=== PATIENT | female | born 1960 | race African-American/Black ===

== ENCOUNTER 2020-10-10 04:19 | Day surgery (SDC) | payer OTHER ==
[2020-10-09 10:09] VITALS: BMI 36.0
[2020-10-10] MEDS ORDERED: INSULIN (NOVOLOG) ASPART 100 UNITS/ML 10ML VIAL SQ ONE (08:41)
[2020-10-10 09:54] VITALS: TEMP 97.7
[2020-10-10 11:23] VITALS: BP 170/64; PULSE 64
== END 2020-10-10 12:28 | disposition home or self-care (01) ==
LOC: JASU-ENDO 04:19
PROVIDERS: ATTEND Internal Medicine Gastroenterology
PROC: 0DBL8ZX Excision of Transverse Colon, Via Natural or Artificial Opening Endoscopic, Diagnostic (ICD-10-PCS; 2020-10-10)
PROC: 0DBK8ZX Excision of Ascending Colon, Via Natural or Artificial Opening Endoscopic, Diagnostic (ICD-10-PCS; principal; 2020-10-10 09:15)
DX: Z12.11 Encounter for screening for malignant neoplasm of colon (principal); D12.2 Benign neoplasm of ascending colon; D12.3 Benign neoplasm of transverse colon; K64.8 Other hemorrhoids; E11.9 Type 2 diabetes mellitus without complications
CPT/HCPCS: 82962

== ENCOUNTER 2024-09-01 18:25 | Inpatient (IN) | payer OTHER ==
[2024-09-01 18:51] VITALS: BMI 38.4
[2024-09-01 20:31] LABS: VENOUS BASE EXCESS 1.4 mmol/L (-2-2); VENOUS O2 SATURATION 95.1 % (70-80); VENOUS PCO2 39.3 mmHg (38-52); VENOUS PH 7.433 (7.310-7.410)
[2024-09-01 20:43] LABS: CHLORIDE 87 mmol/L (98-107); POTASSIUM 3.8 mmol/L (3.5-5.1); SODIUM 127 mmol/L (136-145)
[2024-09-01 20:44] LABS: CALCIUM 9.9 mg/dL (8.5-10.1)
[2024-09-01 20:46] LABS: ALBUMIN 3.5 g/dl (3.4-5.0); ANION GAP 15 mmol/L (4-13); BLOOD UREA NITROGEN 47.5 mg/dL (7-18); CO2 25 mmol/L (21-32); MAGNESIUM 2.1 mg/dL (1.8-2.4)
[2024-09-01 20:49] LABS: CREATININE 2.3 mg/dL (0.55-1.3); SGOT/AST 18 U/L (15-37); SGPT/ALT 17 U/L (13-61)
[2024-09-01 20:50] LABS: BILIRUBIN,TOTAL 0.6 mg/dL (0.2-1)
[2024-09-01 20:52] LABS: ALK PHOS 108 U/L (45-117); GLUCOSE,RANDOM 621 mg/dL (74-106)
[2024-09-01] MEDS ORDERED: TRIMETHOBENZAMIDE HCL 200MG/2ML INJ IM ONE (20:59)
[2024-09-01] MEDS ORDERED: PANTOPRAZOLE SODIUM 40 MG/100 ML BAG IVPB ONE (20:59)
[2024-09-01] MEDS: PANTOPRAZOLE SODIUM 40 MG VIAL IVPUSH ONE (21:04)
[2024-09-01] MEDS: SODIUM CHLORIDE 0.9% 500 ML INFUS.BAG IV ONE ×2 (21:04→23:37)
[2024-09-01] MEDS: TRIMETHOBENZAMIDE HCL 200MG/2ML INJ IM ONE (21:11)
[2024-09-01 21:39] LABS: VENOUS BASE EXCESS 2.1 mmol/L (-2-2); VENOUS O2 SATURATION 71.5 % (70-80); VENOUS PCO2 38.3 mmHg (38-52); VENOUS PH 7.45 (7.310-7.410)
[2024-09-01 21:54] LABS: BASO % 1.1 % (0-2.0); HEMATOCRIT 37.7 % (32.4-45.2); HEMOGLOBIN 12.2 GM/dL (10.7-15.3); LYMPH % 16.7 % (8-40); MCH 25.1 pg (25.7-33.7); MCHC 32.4 g/dl (32.0-36.0); MEAN CELL VOLUME 77.6 fl (80-96); MEAN PLT VOLUME 9.4 fl (7.5-11.1); MONO % 7.7 % (3.8-10.2); NEUT % 74.5 % (42.8-82.8); PLATELET COUNT 336 10^3/uL (134-434); RBC 4.86 M/mm3 (3.60-5.2); RDW 15.9 % (11.6-15.6)
[2024-09-01] MEDS ORDERED: POTASSIUM CHLORIDE ORAL LIQUID 20 MEQ/15 ML ONE (23:25)
[2024-09-01] MEDS: POTASSIUM CHLORIDE ORAL LIQUID 20 MEQ/15 ML PO ONE (23:37)
[2024-09-01] MEDS: INSULIN (NOVOLOG) ASPART 100 UNITS/ML 10ML VIAL SQ ONE (23:47)
[2024-09-01 23:51] LABS: PH,URINE 5.5 (5.0-8.0); URINE APPEARANCE CLEAR; URINE BILIRUBIN NEGATIVE (NEGATIVE); URINE COLOR YELLOW; URINE GLUCOSE (UA) 3+ (NEGATIVE); URINE KETONE TRACE (NEGATIVE); URINE LEUK ESTERASE NEGATIVE (NEGATIVE); URINE NITRITE NEGATIVE (NEGATIVE); URINE PROTEIN 2+ (NEGATIVE); URINE UROBILINOGEN 0.2 mg/dL (0.2-1.0)
[2024-09-01 23:55] LABS: EPI CELLS 33.3 /uL (0-25.1); HYALINE CASTS 1.64 /uL (0-3.1); URINE BACTERIA 5325.9 /uL (0-1359); URINE RBC 5.2 /uL (0-23.9); URINE WBC 52.3 /uL (0-25.8)
[2024-09-02 01:15] LABS: CHLORIDE 92 mmol/L (98-107); SODIUM 131 mmol/L (136-145)
[2024-09-02 01:16] LABS: CALCIUM 9.2 mg/dL (8.5-10.1)
[2024-09-02 01:17] LABS: ANION GAP 12 mmol/L (4-13); CO2 27 mmol/L (21-32)
[2024-09-02 01:29] LABS: GLUCOSE,RANDOM 561 mg/dL (74-106); LACTIC ACID 2.7 mmol/L (0.4-2.0)
[2024-09-02] MEDS ORDERED: INSULIN REGULAR 100 UNITS in SODIUM CHLORIDE 99 ML IVPB SCH (01:45)
[2024-09-02] MEDS ORDERED: CEFTRIAXONE 1 G/50 ML PREMIX 50 ML IVPB ONE (01:51)
[2024-09-02] MEDS: CEFTRIAXONE 1,000 MG in DEXTROSE 5%-WATER - 50 ML IVPB ONE (01:57)
[2024-09-02] MEDS: LACTATED RINGERS SOLUTION 1000 ML INFUS.BAG IV ONE (01:57)
[2024-09-02] MEDS: INSULIN (NOVOLOG) ASPART 100 UNITS/ML 10ML VIAL SQ ONE (02:33)
[2024-09-02] MEDS: INSULIN REGULAR 100 UNITS in SODIUM CHLORIDE 99 ML IVPB SCH (03:30)
[2024-09-02] MEDS ORDERED: MELATONIN 5 MG TABLETS ONE (03:47)
[2024-09-02] MEDS: MELATONIN 5 MG TABLETS PO ONE ×2 (04:17→05:25)
[2024-09-02] MEDS: SODIUM CHLORIDE 1,000 ML IV STA ×2 (04:58)
[2024-09-02] MEDS: INSULIN REGULAR HUMAN 100 UNITS/ML *VIAL IVPUSH ONE ×2 (04:58→06:13)
[2024-09-02] MEDS: HEPARIN NA (PORCINE) 5,000 UNITS/ML 1ML VIAL SQ SCH (05:25)
[2024-09-02] MEDS ORDERED: TRIMETHOBENZAMIDE HCL 200MG/2ML INJ IM PRN ×2 (06:00→09:31)
[2024-09-02] MEDS ORDERED: GABAPENTIN 100 MG CAPSULE ONE (06:30)
[2024-09-02] MEDS: GABAPENTIN 100 MG CAPSULE PO SCH (06:33)
[2024-09-02 07:40] LABS: POTASSIUM 3.4 mmol/L (3.5-5.1)
[2024-09-02 07:41] LABS: CALCIUM 9.1 mg/dL (8.5-10.1)
[2024-09-02 07:43] LABS: ALBUMIN 3.4 g/dl (3.4-5.0)
[2024-09-02 07:46] LABS: CREATININE 1.6 mg/dL (0.55-1.3)
[2024-09-02 07:47] LABS: BILIRUBIN,TOTAL 0.3 mg/dL (0.2-1); TOT PROT 7.3 g/dl (6.4-8.2)
[2024-09-02 07:49] LABS: BLOOD UREA NITROGEN 34.6 mg/dL (7-18)
[2024-09-02 07:51] LABS: MAGNESIUM 1.9 mg/dL (1.8-2.4)
[2024-09-02] MEDS: INSULIN ASPART SLIDING SCALE (NOVOLOG) 1 VIAL SQ SCH ×2 (07:58→11:24)
[2024-09-02] MEDS ORDERED: ONDANSETRON 4 MG/2 ML VIAL ONE (08:00)
[2024-09-02] MEDS: ONDANSETRON 4 MG/2 ML VIAL IVPUSH PRN (08:01)
[2024-09-02 08:18] LABS: BASO % 0.4 % (0-2.0); HEMATOCRIT 36.3 % (32.4-45.2); HEMOGLOBIN 11.5 GM/dL (10.7-15.3); LYMPH % 19.1 % (8-40); MCH 24.8 pg (25.7-33.7); MCHC 31.7 g/dl (32.0-36.0); MEAN CELL VOLUME 78.2 fl (80-96); MEAN PLT VOLUME 9.8 fl (7.5-11.1); MONO % 4.8 % (3.8-10.2); NEUT % 75.7 % (42.8-82.8); PLATELET COUNT 308 10^3/uL (134-434); RBC 4.64 M/mm3 (3.60-5.2); RDW 15.9 % (11.6-15.6); WHITE BLOOD COUNT 13.4 K/mm3 (4.0-10.0)
[2024-09-02] MEDS: INSULIN (LEVEMIR) 100 UNITS/ML UNITS SQ SCH (08:49)
[2024-09-02] MEDS ORDERED: amLODIPine BESYLATE 10 MG TABLET (FP) ONE (09:06)
[2024-09-02] MEDS ORDERED: POTASSIUM CHLORIDE TABS 20 MEQ TABLET.ER (FP) PO ONE (09:06)
[2024-09-02] MEDS ORDERED: TRIMETHOBENZAMIDE HCL 200MG/2ML INJ IM ONE (09:16)
[2024-09-02] MEDS: SODIUM CHLORIDE 0.45% 1,000 ML IV SCH (09:31)
[2024-09-02] MEDS: TRIMETHOBENZAMIDE HCL 200MG/2ML INJ IM ONE (09:33)
[2024-09-02] MEDS: POTASSIUM CHLORIDE TABS 20 MEQ TABLET.ER (FP) PO ONE (09:34)
[2024-09-02] MEDS ORDERED: PANTOPRAZOLE SODIUM 40 MG VIAL ONE (09:35)
[2024-09-02] MEDS: PANTOPRAZOLE SODIUM 40 MG VIAL IVPUSH ONE (09:38)
[2024-09-02] MEDS ORDERED: INSULIN (LEVEMIR) 100 UNITS/ML UNITS SQ SCH (10:00)
[2024-09-02] MEDS: amLODIPine BESYLATE 10 MG TABLET (FP) PO SCH (10:42)
[2024-09-02] MEDS ORDERED: INSULIN ASPART SLIDING SCALE (NOVOLOG) 1 VIAL SQ ONE ×2 (11:34→17:00)
[2024-09-02] MEDS: MAG HYDROX/AL HYDROX/SIMETH 30 ML UNIT-DOSE CUP PO ONE (16:53)
[2024-09-02] MEDS: METOCLOPRAMIDE HCL INJECTION 10 MG/2 ML VIAL IVPUSH SCH (16:53)
[2024-09-02] MEDS: TAMSULOSIN HCL 0.4 MG CAP PO ONE (16:57)
[2024-09-02] MEDS ORDERED: PANTOPRAZOLE 40 MG TABLET PO SCH (22:00)
[2024-09-02] MEDS: PANTOPRAZOLE SODIUM 40 MG VIAL IVPUSH SCH (23:06)
[2024-09-03] MEDS ORDERED: TRIMETHOBENZAMIDE HCL 200MG/2ML INJ IM PRN (07:24)
[2024-09-03 09:28] LABS: BASO % 0.6 % (0-2.0); EOS % 0.3 % (0-4.5); HEMATOCRIT 30.4 % (32.4-45.2); HEMOGLOBIN 10.3 GM/dL (10.7-15.3); LYMPH % 41.6 % (8-40); MCH 25.8 pg (25.7-33.7); MCHC 33.9 g/dl (32.0-36.0); MEAN CELL VOLUME 76.2 fl (80-96); MEAN PLT VOLUME 9.3 fl (7.5-11.1); MONO % 8.1 % (3.8-10.2); NEUT % 49.4 % (42.8-82.8); PLATELET COUNT 249 10^3/uL (134-434); RBC 3.98 M/mm3 (3.60-5.2)
[2024-09-03 09:55] LABS: POTASSIUM 3.1 mmol/L (3.5-5.1)
[2024-09-03] MEDS ORDERED: CEFTRIAXONE 1 G/50 ML PREMIX 50 ML IVPB SCH (10:00)
[2024-09-03 10:03] LABS: ALBUMIN 2.9 g/dl (3.4-5.0); BLOOD UREA NITROGEN 22.3 mg/dL (7-18); CALCIUM 8.5 mg/dL (8.5-10.1); MAGNESIUM 1.7 mg/dL (1.8-2.4)
[2024-09-03 10:06] LABS: CREATININE 1.6 mg/dL (0.55-1.3)
[2024-09-03 10:08] LABS: BILIRUBIN,TOTAL 0.3 mg/dL (0.2-1)
[2024-09-03] MEDS: TAMSULOSIN HCL 0.4 MG CAP PO SCH (11:17)
[2024-09-03] MEDS: CEFTRIAXONE 1 GM in DEXTROSE 5%-WATER - 50 ML IVPB SCH (12:36)
[2024-09-03] MEDS: CEFTRIAXONE 1 G/50 ML PREMIX 50 ML IVPB SCH (12:37)
[2024-09-03] MEDS: MAG HYDROX/AL HYDROX/SIMETH 30 ML UNIT-DOSE CUP PO PRN (14:29)
[2024-09-03] MEDS: POTASSIUM CHLORIDE ORAL LIQUID 20 MEQ/15 ML PO SCH (16:14)
[2024-09-03] MEDS: SUCRALFATE 1 GM/10 ML UNIT DOSE CUPS PO SCH (16:15)
[2024-09-03] MEDS: MAGNESIUM OXIDE 400 MG TABLET (FP) PO ONE (16:18)
[2024-09-03] MEDS: INSULIN ASPART SLIDING SCALE (NOVOLOG) 1 VIAL SQ SCH (16:23)
[2024-09-03] MEDS: ACETAMINOPHEN 1000 MG/100 ML BAG IVPB ONE (20:46)
[2024-09-03] MEDS: INSULIN (LEVEMIR) 100 UNITS/ML UNITS SQ SCH (21:58)
[2024-09-03] MEDS ORDERED: INSULIN (LEVEMIR) 100 UNITS/ML UNITS SQ SCH (22:00)
[2024-09-04 09:46] LABS: BASO % 0.7 % (0-2.0); EOS % 0.7 % (0-4.5); HEMATOCRIT 32.9 % (32.4-45.2); HEMOGLOBIN 10.4 GM/dL (10.7-15.3); LYMPH % 35.9 % (8-40); MCH 25.1 pg (25.7-33.7); MCHC 31.7 g/dl (32.0-36.0); MEAN CELL VOLUME 79.3 fl (80-96); MEAN PLT VOLUME 9.6 fl (7.5-11.1); MONO % 8.5 % (3.8-10.2); NEUT % 54.2 % (42.8-82.8); PLATELET COUNT 240 10^3/uL (134-434); RBC 4.15 M/mm3 (3.60-5.2); RDW 16.2 % (11.6-15.6)
[2024-09-04 10:18] LABS: CALCIUM 8.4 mg/dL (8.5-10.1)
[2024-09-04 10:19] LABS: ALBUMIN 2.8 g/dl (3.4-5.0)
[2024-09-04 10:22] LABS: BILIRUBIN,TOTAL 0.3 mg/dL (0.2-1); CREATININE 1.6 mg/dL (0.55-1.3)
[2024-09-04 10:23] LABS: TOT PROT 6.3 g/dl (6.4-8.2)
[2024-09-04] MEDS ORDERED: INSULIN ASPART SLIDING SCALE (NOVOLOG) 1 VIAL SQ ONE ×2 (11:45→16:58)
[2024-09-04] MEDS: SIMETHICONE 80 MG TAB.CHEW (FP) PO SCH (14:23)
[2024-09-04] MEDS: METOCLOPRAMIDE HCL 10 MG TABLET (FP) PO SCH (17:00)
[2024-09-04] MEDS: MELATONIN 5 MG TABLETS PO PRN (23:58)
[2024-09-05] MEDS: ACETAMINOPHEN 1000 MG/100 ML BAG IVPB PRN (03:58)
[2024-09-05] MEDS: IBUPROFEN 400 MG TABLET (FP) PO ONE (06:38)
[2024-09-05 08:28] LABS: BASO % 0.6 % (0-2.0); EOS % 1.5 % (0-4.5); HEMATOCRIT 27.6 % (32.4-45.2); HEMOGLOBIN 9.3 GM/dL (10.7-15.3); LYMPH % 31.7 % (8-40); MCH 25.9 pg (25.7-33.7); MCHC 33.9 g/dl (32.0-36.0); MEAN CELL VOLUME 76.6 fl (80-96); MEAN PLT VOLUME 9.3 fl (7.5-11.1); MONO % 7.4 % (3.8-10.2); NEUT % 58.8 % (42.8-82.8); PLATELET COUNT 191 10^3/uL (134-434); RDW 15.5 % (11.6-15.6); WHITE BLOOD COUNT 8.3 K/mm3 (4.0-10.0)
[2024-09-05 08:34] LABS: POTASSIUM 3.8 mmol/L (3.5-5.1)
[2024-09-05 08:48] LABS: CALCIUM 8.5 mg/dL (8.5-10.1)
[2024-09-05 08:49] LABS: ALBUMIN 2.7 g/dl (3.4-5.0)
[2024-09-05 08:50] LABS: BLOOD UREA NITROGEN 23.6 mg/dL (7-18)
[2024-09-05 08:52] LABS: CREATININE 1.5 mg/dL (0.55-1.3)
[2024-09-05 08:54] LABS: BILIRUBIN,TOTAL 0.3 mg/dL (0.2-1); TOT PROT 5.9 g/dl (6.4-8.2)
[2024-09-05] MEDS: PANTOPRAZOLE 40 MG TABLET PO SCH (09:24)
[2024-09-05] MEDS ORDERED: INSULIN ASPART SLIDING SCALE (NOVOLOG) 1 VIAL SQ ONE ×2 (11:10→17:02)
[2024-09-05] MEDS: INSULIN (LEVEMIR) 100 UNITS/ML UNITS SQ SCH (22:28)
[2024-09-06 10:15] LABS: BASO % 0.6 % (0-2.0); EOS % 2.1 % (0-4.5); HEMATOCRIT 30.9 % (32.4-45.2); HEMOGLOBIN 10.1 GM/dL (10.7-15.3); LYMPH % 29.1 % (8-40); MCH 25.4 pg (25.7-33.7); MCHC 32.7 g/dl (32.0-36.0); MEAN CELL VOLUME 77.8 fl (80-96); MEAN PLT VOLUME 9.7 fl (7.5-11.1); NEUT % 61.2 % (42.8-82.8); PLATELET COUNT 230 10^3/uL (134-434); RBC 3.98 M/mm3 (3.60-5.2); RDW 16.2 % (11.6-15.6); WHITE BLOOD COUNT 11.3 K/mm3 (4.0-10.0)
[2024-09-06 10:45] LABS: CALCIUM 8.8 mg/dL (8.5-10.1)
[2024-09-06 10:46] LABS: BLOOD UREA NITROGEN 25.8 mg/dL (7-18); MAGNESIUM 1.9 mg/dL (1.8-2.4)
[2024-09-06 10:49] LABS: CREATININE 1.5 mg/dL (0.55-1.3)
[2024-09-06 11:10] LABS: POTASSIUM 4.2 mmol/L (3.5-5.1)
[2024-09-07 01:32] VITALS: RESP 18
[2024-09-07 08:46] LABS: BASO % 1.1 % (0-2.0); EOS % 2.6 % (0-4.5); HEMATOCRIT 31.1 % (32.4-45.2); HEMOGLOBIN 9.8 GM/dL (10.7-15.3); LYMPH % 31.5 % (8-40); MCH 24.9 pg (25.7-33.7); MCHC 31.4 g/dl (32.0-36.0); MEAN CELL VOLUME 79.3 fl (80-96); MONO % 7.3 % (3.8-10.2); NEUT % 57.5 % (42.8-82.8); RBC 3.92 M/mm3 (3.60-5.2); WHITE BLOOD COUNT 10.3 K/mm3 (4.0-10.0)
[2024-09-07 09:08] LABS: PLATELET ESTIMATE ADEQUATE
[2024-09-07] MEDS: LIDOCAINE 5% TOPICAL PATCH TP SCH (14:05)
[2024-09-07] MEDS: POLYETHYLENE GLYCOL (HEALTHYLAX) 3350 17 GM PACKET PO ONE (15:43)
[2024-09-07 20:12] VITALS: BP 153/61; PULSE 82; TEMP 98.4
[2024-09-07] MEDS ORDERED: LIDOCAINE PATCH REMOVAL MC SCH (22:00)
== END 2024-09-07 20:18 | disposition home health service (06) | DRG 638 ==
LOC: JER 18:25 → JERBED 09-02 01:36 → J8W 09-02 10:02
PROVIDERS: ADMIT Internal Medicine; ATTEND Nurse Practitioner Family
DX: E11.10 Type 2 diabetes mellitus with ketoacidosis without coma (principal); N39.0 Urinary tract infection, site not specified; E11.00 Type 2 diabetes mellitus with hyperosmolarity without nonketotic hyperglycemic-hyperosmolar coma (NKHHC); E66.9 Obesity, unspecified; R33.9 Retention of urine, unspecified; N20.0 Calculus of kidney; E11.22 Type 2 diabetes mellitus with diabetic chronic kidney disease; I12.9 Hypertensive chronic kidney disease with stage 1 through stage 4 chronic kidney disease, or unspecified chronic kidney disease; Z68.38 Body mass index [BMI] 38.0-38.9, adult; E78.5 Hyperlipidemia, unspecified; N18.2 Chronic kidney disease, stage 2 (mild); E86.0 Dehydration; E11.40 Type 2 diabetes mellitus with diabetic neuropathy, unspecified
CPT/HCPCS: 0241U-QW; 36415; 71045-TC-FY; 73030-TC-RT-FY; 74176-TC; 80048; 80053; 81003; 82010; 82803; 82962; 83036; 83605; 83690; 83735; 83930; 84100; 84484; 85025; 87086; 93005; 93010; 97116-GP; 97161-GP; 99291; J0131; J1644